=== PATIENT | male | born 1975 | race Caucasian/White ===

== ENCOUNTER 2018-01-31 07:17 | Day surgery (SDC) | payer BC, OTHER ==
[~2018-01-31] VITALS: Ht 175.3 cm; Wt 113.1 kg
[2018-01-31] VITALS (15 sets, daily range): BP systolic 88–131; BP diastolic 45–81; PULSE 88–105; RESP 14–24; Ht 175.3 cm; Wt 113.1 kg
[~2018-01-31 07:17] MED LIST: CEFAZOLIN 1 GM INJ ONE; GLYCOPYRROLATE 0.4 MG INJ ONE
[2018-01-31] MEDS ORDERED: ATOR20TA38 PO (08:01)
[2018-01-31] MEDS ORDERED: CHOL500010 PO (08:03)
[2018-01-31] MEDS ORDERED: HYDR-3672 PO (08:03)
[2018-01-31] MEDS ORDERED: LANT3I SC (08:04)
[2018-01-31] MEDS ORDERED: METO-448 PO (08:05)
[2018-01-31] MEDS ORDERED: INSU100I12 SQ (08:05)
[2018-01-31] MEDS ORDERED: NIFE30TA23 PO (08:06)
[2018-01-31] MEDS ORDERED: LISI10TA2 PO (08:06)
[2018-01-31] MEDS ORDERED: POLYMYXIN/BACITRACIN 1L IRRIG ONE (08:39)
[2018-01-31] MEDS ORDERED: LIDOCAINE 2% (MDV) 20 ML INJ ONE (08:39)
[2018-01-31] MEDS ORDERED: BUPIVACAINE 0.5% (SDV) 30 ML INJ ONE (08:39)
--- NOTE | 2018-01-31 08:46 | HPN ---
Date/Time of Note Date/Time of Note DATE: 01/31/18 TIME: 08:46 Interval H&P Admission Note Pt. seen H&P reviewed: No system changes REMA CHANG DPM Jan 31, 2018 08:46
[2018-01-31] MEDS ORDERED: PROPOFOL 40 ML ONE (09:05)
[2018-01-31] MEDS ORDERED: FENTAnyl 50 MCG/ML VIAL ONE (09:05)
[2018-01-31] MEDS ORDERED: MIDAZOLAM 1 MG/ML 2 ML INJ ONE ×2 (09:05→09:32)
--- NOTE | 2018-01-31 09:09 | PREAC ---
Date/Time of Note Date/Time of Note DATE: 01/31/18 TIME: 08:49 Anesthesia Eval and Record Evaluation Time Pre-Procedure Interview DATE: 01/31/18 TIME: 08:49 Age 42 Sex male NPO: 8 hrs Preoperative diagnosis L foot amputated toe Planned procedure Revision of 2nd ray amputation L foot Past Medical History Past Medical History: Includes Cardio: HTN, Dyslipidemia Endo: Diabetes Surgery & Anesthesia Issues No known issue Meds Anticoagulation: No Beta Shay within 24 hr: Yes Reported Medications Lisinopril* (Lisinopril*) 10 Mg Tablet, 10 MG PO DAILY, #30 TAB 01/31/18 Nifedipine* (Nifedipine ER*) 30 Mg Tablet.sa, 30 MG PO DAILY, TAB.SA 01/31/18 Metoprolol Tartrate* (Lopressor*) 25 Mg Tab, 75 MG PO BID, #180 TAB 01/31/18 Insulin Lispro (Humalog Kwikpen U-100) 100 Unit/1 Ml Insuln.pen, 5 UNIT SQ AC A, EA 01/31/18 Insulin Glargine* (Lantus*) 100 Unit/Ml Soln, 15 UNIT SC QHS, #1 VIAL 01/31/18 Hydralazine Hcl* (Hydralazine Hcl*) 50 Mg Tab, 50 MG PO TID, #90 TAB 01/31/18 Cholecalciferol (Vitamin D3) 5,000 Unit Tablet, 5000 UNIT PO DAILY, TAB 01/31/18 Atorvastatin Calcium* (Atorvastatin Calcium*) 20 Mg Tablet, 20 MG PO QHS, #30 TAB 01/31/18 Meds reviewed: Yes Allergies Coded Allergies: No Known Allergy (Unverified , 01/31/18) Allergies Reviewed: Yes Labs/Studies Labs Reviewed: Reviewed by anesthesiologist test: N/A Pre-procedure Exam Last vitals Vital Signs Date Temp Pulse Resp B/P (MAP) Pulse Ox O2 O2 Flow FiO2 Time Delivery Rate 01/31/18 98.3 103 18 121/67 98 Room Air 08:30 (85) Airway: Adequate mouth opening, Adequate thyromental dist Mallampati: Mallampati II Teeth: Normal Lung: Normal Heart: Normal ASA Physical Status ASA physical status: 2 Emergency: None Planned Anesthetic General/MAC: LMA, MAC Pre-operative Attestations Prior to commencing anesthesia and surgery, the patient was re-evaluated, there was verification of: *The patient's identity *The results of appropriate recent lab work and preoperative vital signs *The above evaluation not changing prior to induction *Anesthetic plan, risk benefits, alternative and complications discussed with patient/family; questions answered; patient/family understands, accepts and wishes to proceed. HERLINDA RIGGS Jan 31, 2018 09:02
[2018-01-31] MEDS ORDERED: PROPOFOL 20 ML ONE (09:16)
[2018-01-31] MEDS ORDERED: KETAMINE (50 MG/ML) 10 ML VIAL ONE (09:17)
[2018-01-31] MEDS ORDERED: LIDOCAINE 1% (MDV) 20 ML INJ ONE (09:45)
--- NOTE | 2018-01-31 10:22 | NUR ---
NURSING RR RECEIVED PT FROM OR NOT IN ANY DISTRESS ,PT HAS DSG TO L FOOT CLEAN AND DRY .IV TO R HAND G20 NEEDLE WITH LR INFUSING WELL .
--- NOTE | 2018-01-31 10:27 | OPPN ---
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
--- NOTE | 2018-01-31 10:27 | OPR ---
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 He was followed in my office and his condition improved to a point where he was ready for revision amputation for primary closure of the wound. Patient has diabetes mellitus and is morbidly obese. Risks and complications of this type of surgery was discussed with patient in [facility]. Risks and complications discussed include, but are not limited to, postoperative infection, postoperative pain, chronic pain and disability, hardware failure, malunion, nonunion, delayed union, failure of surgery to correct the problem, need for additional surgical procedures, toenail changes, onychomycosis, deep venous thrombosis, gait disturbance, problems with shoegear, limitation of activities, limb loss and loss of life. Patient understands the discussion and agrees to the procedure. An informed consent was obtained, signed and placed in the chart. No guarantee or warrantee was given or implied as to the outcome of the procedure either in verbal or written form. Procedure Description The patient was seen in the preoperative unit. The proposed surgery was discussed with patient in great detail. Risks and complications of this type of surgery was discussed with patient in great detail. Opportunity was given to patient to ask questions and all questions were answered. The patient acknowledges understanding of the discussion. An informed consent was then obtained, signed and placed in the chart. Patient was taken to the operating room and was placed on the operating table in the supine position. All bony prominences were padded properly. A timeout was called by the circulating nurse. Everyone in the operating room was agreeable to the timeout. The patient was then placed under [general anesthesia] by the anesthesiologist. The left lower extremity was scrubbed,l prepped, and draped in the usual aseptic manner. Procedure: Revision amputation left second toe Attention was directed to the left foot. Open wound was present at the site of the amputation of previous second toe. Second open wound was present on the plantar aspect of the second metatarsal phalangeal joint. A #10 blade was used to make an incision encompassing the plantar wound and the distal second toe amputation site. This was done all the way to bone. Bleeders were identified and cauterized as necessary. Next, the head of the metatarsal was found to be in pristine condition with no breakage. No further osteotomy was necessary. Extensive soft tissue debridement was done using a #15 blade to allow accommodation for primary closure of the wound. The wound was flushed with copious amounts of sterile normal saline. I reapproximated the subcutaneous layer using 3-0 Vicryl suture and I used 0 Prolene suture in simple suture technique to primarily close the wound. Postoperative injection of 0.5% Marcaine plain was given approximately 20 cc. Sterile dressing was applied to the left foot. The patient tolerated the procedure and anesthesia well. He was transferred to the recovery with vital signs stable and vascular status intact to the left foot. The patient will be sent home after postoperative monitoring. Patient will be followed in my office. Postop orders were written and prescription were submitted electronically to his pharmacy. REMA CHANG DPM Jan 31, 2018 10:27
--- NOTE | 2018-01-31 10:29 | PAC ---
Date/Time of Note Date/Time of Note DATE: 01/31/18 TIME: 10:29 Post-Anesthesia Notes Post-Anesthesia Note Last documented vital signs Vital Signs Date Temp Pulse Resp B/P (MAP) Pulse Ox O2 O2 Flow FiO2 Time Delivery Rate 01/31/18 98.3 103 18 121/67 98 Room Air 08:30 (85) Activity: WNL Respiratory function: WNL Cardiovascular function: WNL Mental status: Baseline Pain reasonably controlled: Yes Hydration appropriate: Yes Nausea/Vomiting absent: Yes HERLINDA RIGGS Jan 31, 2018 10:29
--- NOTE | 2018-01-31 11:20 | NUR ---
TRANSFER PT TRANSFER TO [facility] IN STABLE CONDITION REPORT GIVEN TO RN CARE PROVIDED PER [facility] .PT FAMILY UPDATED AND INSTRUCTED TO GO TO [facility] .
--- NOTE | 2018-01-31 12:52 | NUR ---
1125H: Received patient from Recovery room, Awake alert oriented to Person place time and situation. dressing over left foot clean dry intact. noted popliteal pulse to be palpable over left. VS stable. 1205H : discharge instructions provided to patient re: activity to follow at home, emphasized that no weight bearing over his left foot, discharge instructions on how to use crutch provided to patient, demonstrated how to use crutch, emphasizing not to put his weight on his left foot. 1220H Patient walked using the crutch, reiterated not to put any weight on his left leg/foot. As per patient he knows how to use crutch already since he has been doing it for 1 month. demonstrated patient how to use crutch, patient is not well versed on using crutch. and accidentally put pressure on his left foot, noted to have bleeding, w/ blood clots, approximately 100cc, patient put back on bed, notified Dr. Ludwig, VS: 1235H: BP 131/81, HR 105, Oxygen sat at 98% on RA, RR 16. Pressure applied over left foot. Patient on stable condition. 1255H: Dr. Ludwig at bedside. dressing changed, and reiterated not to put weight and or pressure over his left foot. as per dr. Ludwig, ok to discharge patient after 30 minutes if there is no bleeding.
--- NOTE | 2018-01-31 13:23 | NUR ---
1300H: dr. Ludwig dressed the wound w/ kirlix wrapped w/ AMI and coban.
== END 2018-01-31 14:00 | disposition home or self-care (01) ==
LOC: SDS 07:17
PROVIDERS: ATTEND Podiatrist Foot & Ankle Surgery
DX: T87.89 Other complications of amputation stump (principal); Y83.8 Other surgical procedures as the cause of abnormal reaction of the patient, or of later complication, without mention of misadventure at the time of the procedure; I73.9 Peripheral vascular disease, unspecified; E66.01 Morbid (severe) obesity due to excess calories; Z68.36 Body mass index [BMI] 36.0-36.9, adult; E11.9 Type 2 diabetes mellitus without complications
CPT/HCPCS: 28820; 73620; 80053; 82962; 85025; 85610; 85730; 87070; 87075; 87102; 88304; 88311; J0690; J2250; J3010